=== PATIENT | male | born 1990 | race Caucasian/White ===

== ENCOUNTER 2017-05-06 09:49 | Observation (INO) | payer BC ==
[2017-05-05 14:35] VITALS: BMI 23.1
[2017-05-06] VITALS (17 sets, daily range): BP systolic 59–134; BP diastolic 49–91; PULSE 46–74; RESP 10–29; Ht 180.3 cm; Wt 71.7 kg
[~2017-05-06] VITALS: Ht 180.3 cm; Wt 71.7 kg
[~2017-05-06 09:49] MED LIST: CEFAZOLIN 2 GM/50 ML (PMX) 50 ML IVPB SCH
[2017-05-06] MEDS ORDERED: BUPIVACAINE 0.25% (MPF) 30 ML INJ ONE (10:12)
[2017-05-06] MEDS ORDERED: MIDAZOLAM 1 MG/ML 2 ML INJ ONE (12:10)
[2017-05-06] MEDS ORDERED: PROPOFOL 20 ML ONE (13:19)
[2017-05-06] MEDS ORDERED: SOD CHLORIDE 0.9% 1,000 ML IV SCH (13:19)
[2017-05-06] MEDS ORDERED: GLYCOPYRROLATE 0.4 MG INJ ONE (13:19)
[2017-05-06] MEDS ORDERED: NEOSTIGMINE 3 MG/3 ML SYRINGE ONE (13:19)
[2017-05-06] MEDS ORDERED: LIDOCAINE 2% (SDV) 5 ML INJ ONE (13:19)
[2017-05-06] MEDS ORDERED: ROCURONIUM 50 MG INJ ONE (13:19)
[2017-05-06] MEDS ORDERED: ONDANSETRON 4 MG INJ ONE (13:20)
[2017-05-06] MEDS ORDERED: CEFAZOLIN 1 GM INJ ONE (13:25)
--- NOTE | 2017-05-06 13:25 | OPR ---
Date/Time of Note Date/Time of Note DATE: 05/06/17 TIME: 13:22 Operative Report Procedure Date: May 06, 2017 Preoperative Diagnosis appendicitis Postoperative Diagnosis same Surgeon see signature line Band Splicer none Anesthesia Type: general Estimated Blood Loss: 0 - 10 ml's Transfusion none Specimen appendix Grafts/Implants none Complications none Pt Condition Post Procedure: stable Indications This is a 27-year-old male who had a episode of appendicitis. He had a dilated appendix and was treated with antibiotics. He still has some pain requests surgical excision of his appendix. Risks alternatives benefits and percent were discussed the patient. Patient's best understanding consents to the operation. Procedure Description Patient taken to the OR and prepped and draped in usual sterile fashion. Surgical timeout was performed. IV antibiotics were given. Infraumbilical midline incision made with a 15 blade. Dissection cautery was carried down to the fascia the fascia is divided with curved Gamble scissors. 0 Vicryl U stitch was placed into the fascia. Blueness on trocar is introduced pneumoperitoneum was established. Suprapubic 5 mm optical trocar was placed under direct visualization left lower quadrant 12 mm optical trocar was placed under direct visualization. Upon initial inspection the appendix appeared retrocecal. The cecum was mobilized by dividing the white line of Toldt with a laparoscopic harmonic blade. This allowed identification of the base of the appendix. The base of the appendix was divided with a white load 45 echelon vascular stapler. The appendiceal artery was divided using laparoscopic harmonic blade and additional clips were applied. The tip of the appendix was mobilized. The appendix was resected and removed using Endo Catch bag. The surgical site was hemostatic. Minimal irrigation was used. Ports removed under direct visualization. 0 Vicryl U stitch was tied down. Skin was closed using skin favio. Subcutaneous therapy local anesthesia was injected throughout the port sites. Dressings were applied. Wilber GILLETTE May 06, 2017 13:25
[2017-05-06] MEDS ORDERED: morphine 2 MG INJ IV PRN (13:30)
[2017-05-06] MEDS ORDERED: HYDROCODONE/APAP (5/325) TAB PO PRN (13:30)
[2017-05-06] MEDS ORDERED: KETOROLAC 15 MG INJ IV PRN (13:30)
[2017-05-06] MEDS ORDERED: MEPERIDINE 25 MG INJ ONE (13:47)
[2017-05-06] MEDS ORDERED: DIPHENHYDRAMINE 50 MG INJ IV PRN (14:00)
[2017-05-06] MEDS ORDERED: HYDROmorphONE (0.2 MG/ML) 10ML SYG IV PRN ×2 (14:00)
[2017-05-06] MEDS ORDERED: FENTAnyl 50 MCG/ML VIAL IV PRN (14:00)
[2017-05-06] MEDS ORDERED: MEPERIDINE 25 MG INJ IV PRN (14:00)
[2017-05-06] MEDS ORDERED: ONDANSETRON 4 MG INJ IV PRN (14:00)
[2017-05-06 15:05] LABS: BASOPHIL # 0.1 10^3/ul (0.0-0.1); BASOPHILS % 0.6 % (0.0-2.0); EOSINOPHILS % 0.4 % (0.0-7.0); HEMATOCRIT 38.7 % (42.0-52.0); HEMOGLOBIN 12.3 g/dl (14.0-18.0); LYMPHOCYTES # 1.2 10^3/ul (0.8-2.9); LYMPHOCYTES % 14.7 % (15.0-51.0); MEAN CORPUSCULAR HEMOGLOBIN 28.1 pg (29.0-33.0); MEAN CORPUSCULAR HGB CONC 31.8 g/dl (32.0-37.0); MEAN CORPUSCULAR VOLUME 88.6 fl (82.0-101.0); MONOCYTE # 0.5 10^3/ul (0.3-0.9); MONOCYTES % 5.8 % (0.0-11.0); NEUTROPHIL # 6.1 10^3/ul (1.6-7.5); PLATELET COUNT 194 10^3/UL (140-415); RED BLOOD COUNT 4.37 10^6/ul (4.70-6.10); RED CELL DISTRIBUTION WIDTH 14.3 % (11.5-14.5); WHITE BLOOD COUNT 7.8 10^3/ul (4.8-10.8)
[2017-05-06 15:09] LABS: ALBUMIN 3.8 g/dl (3.3-4.9); ALBUMIN/GLOBULIN RATIO 1.22; BILIRUBIN,INDIRECT 0.5 mg/dl (0-1.1); BILIRUBIN,TOTAL 0.5 mg/dl (0.2-1.3); TOTAL PROTEIN 6.9 g/dl (6.1-8.1)
[2017-05-06 15:10] LABS: CALCIUM 8.6 mg/dl (8.4-10.2); CREATININE 0.95 mg/dl (0.61-1.24); POTASSIUM 3.8 mmol/L (3.5-5.1)
[2017-05-06] MEDS: CEFAZOLIN 2 GM/50 ML (PMX) 50 ML IVPB SCH ×2 (17:38→21:04)
[2017-05-06] MEDS: SOD CHLORIDE 0.9% 1,000 ML IV SCH ×2 (17:39→19:50)
--- NOTE | 2017-05-06 18:45 | HP ---
DATE OF ADMISSION: 05/06/2017 CHIEF COMPLAINT/HISTORY OF PRESENT ILLNESS: Patient is a 27-year-old gentleman with no significant past medical history, presented to [facility] ER about a month ago with acute appendiciti s. The patient was noted to have dilated appendix and was treated with antibiotics. The patient co ntinued to have some residual pain and was referred to Dr. Hammond. The patient was seen by Dr. Hammond as an outpatient and was brought into hospital today and underwent appendectomy. The patient is being admitted for further care. The patient denied any history of chest pain. No history of shortness o f breath, no history of vomiting, no history of fever or chills. No history of urinary or bowel com plaint. No history of fever or chills since surgery. REVIEW OF SYSTEMS: Other than postoperative pain the rest of review of systems unremarkable. PAST SURGICAL HISTORY: None. ALLERGIES: NONE. SOCIAL HISTORY: No smoking. The patient drinks alcohol over the weekend. PHYSICAL EXAMINATION: GENERAL: The patient is conscious, awake. VITAL SIGNS: Temperature 97.8, pulse 70, respirations 16, blood pressure 134/67, O2 saturation 96 o n room air. HEENT: Conjunctivae and lids normal. Oropharynx clear. NECK: Supple. No mass, no thyromegaly. CHEST: Fairly clear. CARDIOVASCULAR: Nose normal. No murmur. ABDOMEN: Soft. Patient is status post appendectomy. EXTREMITIES: No edema. NEUROLOGIC: The patient is awake, alert, fairly oriented with no gross focal deficit. LABORATORY DATA: This morning, WBC 7.8, hemoglobin 12.8, platelets 194. Sodium 142, potassium 3.8, BUN 11, creatinine 0.9, glucose 108. AST 44, ALT 54, alkaline phosphatase 54. IMPRESSION: Appendicitis, status post surgery. PLAN: The patient will be admitted on medical floor. Patient will be started on clear liquid diet, which will be advanced as tolerated. The patient will be given Shobonier and IV morphine for pain cont rol. Diet will be advanced. The patient will also be given IV fluid. The patient is due to receiv e 2 doses of IV cefazolin as per protocol. Further recommendations as per patient's hospital course . Dictated By: AIYANA LOPEZ/ARMEN Conf#: [id number] [facility]#: [id number]
== END 2017-05-06 22:35 | disposition home or self-care (01) ==
LOC: SDS 09:49 → REC 13:22 → SDS 13:22 → UNDOADMOB 15:45 → REC 15:45 → MS1 16:45 → REC 16:45 → MS1 17:29
PROVIDERS: ADMIT Internal Medicine; ATTEND Surgery
DX: K35.80 Unspecified acute appendicitis (principal)
CPT/HCPCS: 44970; 80053; 85025; 88304; J0690; J1170; J1885; J2175; J2250; J2405; J2710; J3010; J7030; Z7500; Z7512; Z7610; 99217; G0378